=== PATIENT | female | born 1970 | race Caucasian/White ===

== ENCOUNTER 2019-03-26 11:15 | Outpatient (REF) | payer MEDICAID, SELFPAY ==
[2019-03-26 22:51] LABS: Calculated LDL 97 mg/dL; Cholesterol 206 mg/dL (50-200); HDL Cholesterol 47 mg/dL (40-60); Triglyceride 312 mg/dL (30-150)
== END 2019-03-26 11:35 ==
LOC: NCHCN 11:15
PROVIDERS: Visit Provider Registered Nurse
DX: E78.5 Hyperlipidemia, unspecified (principal)
CPT/HCPCS: 80061; 83721

== ENCOUNTER 2020-01-03 13:09 | Outpatient (REF) | payer MEDICAID, SELFPAY ==
[2020-01-03 20:52] LABS: Anion Gap 7.4 mmol/L (3-11); BUN 23 mg/dL (7-18); CO2 29.6 mmol/L (21.0-32.0); CREATININE 1.04 mg/dL (0.55-1.02); Chloride 101 mmol/L (98-107); Estimated GFR 55.87 (mL/min/1.73m2); Glucose 90 mg/dL (74-106); Potassium 3.6 mmol/L (3.5-5.1); Sodium 138 mmol/L (136-145)
== END 2020-01-03 13:29 ==
LOC: NCHCN 13:09
PROVIDERS: Visit Provider Registered Nurse
DX: I10 Essential (primary) hypertension (principal)
CPT/HCPCS: 80048

== ENCOUNTER 2020-01-13 12:58 | Outpatient (REF) | payer MEDICAID, SELFPAY ==
[2020-01-13 21:29] LABS: BUN 12 mg/dL (7-18); CREATININE 1.01 mg/dL (0.55-1.02); Estimated GFR 57.79 (mL/min/1.73m2)
== END 2020-01-13 13:18 ==
LOC: NCHCN 12:58
PROVIDERS: Visit Provider Registered Nurse
DX: R79.89 Other specified abnormal findings of blood chemistry (principal)
CPT/HCPCS: 84520; 82565

== ENCOUNTER 2020-10-01 16:10 | Outpatient (REF) | payer MEDICAID, SELFPAY ==
[2020-10-01 14:24] LABS: Abs Immature Grans 0.06 10^3/uL (0.0-0.06); Absolute Eosinophil Count 0.25 10^3/uL (0.0-0.7); Absolute Lymphocyte Count 1.99 10^3/uL (1.2-3.4); Absolute Monocyte Count 1.17 10^3/uL (0.1-0.8); Absolute Neutrophil Count 8.56 10^3/uL (1.2-6.7); Basophils % 0.2; Eosinophils % 2.1; HCT 50.8 % (36.0-46.0); HGB 16.8 g/dL (11.2-15.7); Immature Grans % 0.5; Lymphocytes % 16.5; MCH 32.1 pg (27.0-33.0); MCHC 33.1 % (32.0-36.0); MCV 96.9 fL (80-95); MPV 9.9 fL (8.0-11.0); Monocytes % 9.7; Nucleated RBC 0 %; Platelet Count 319 10^3/uL (130-400); RBC 5.24 10^6/uL (3.93-5.22); RDW 12.6 % (11.7-14.6); RDW-SD 45.6 fL; WBC 12.06 10^3/uL (4.4-10.8)
[2020-10-01 14:25] LABS: Absolute Basophil Count 0.02 10^3/uL (0.0-0.2)
== END 2020-10-01 16:11 | disposition home or self-care (01) ==
LOC: NCHCN 16:10
PROVIDERS: PCP Registered Nurse; Visit Provider Registered Nurse
DX: R10.9 Unspecified abdominal pain (principal)
CPT/HCPCS: 85025; 87086

== ENCOUNTER 2021-04-23 10:09 | Outpatient (REF) | payer MEDICAID, SELFPAY ==
[2021-04-23 18:47] LABS: Anion Gap 11.8 mmol/L (3-11); BUN 15 mg/dL (7-18); CO2 26.2 mmol/L (21.0-32.0); CREATININE 0.9 mg/dL (0.55-1.02); Calculated LDL 96 mg/dL (<100); Chloride 103 mmol/L (98-107); Cholesterol 191 mg/dL (<200); Glucose 97 mg/dL (74-106); HDL Cholesterol 52 mg/dL (40-60); Potassium 3.9 mmol/L (3.5-5.1); Sodium 141 mmol/L (136-145); Triglyceride 215 mg/dL (<150)
[2021-04-23 18:51] LABS: Hemoglobin A1C 5.7 % (<5.7)
== END 2021-04-23 10:10 | disposition home or self-care (01) ==
LOC: NCHCN 10:09
PROVIDERS: PCP Registered Nurse; Visit Provider Registered Nurse
DX: I10 Essential (primary) hypertension (principal); E78.5 Hyperlipidemia, unspecified
CPT/HCPCS: 80048; 80061; 83036

== ENCOUNTER 2021-06-03 12:32 | Outpatient (REF) | payer MEDICAID, SELFPAY ==
[2021-06-03 14:23] LABS: Anion Gap 7.2 mmol/L (3-11); BUN 16 mg/dL (7-18); CO2 26.8 mmol/L (21.0-32.0); Calcium 8.8 mg/dL (8.5-10.1); Chloride 107 mmol/L (98-107); Glucose 145 mg/dL (74-106); Magnesium 1.9 mg/dL (1.8-2.4); Potassium 3.4 mmol/L (3.5-5.1); Sodium 141 mmol/L (136-145)
== END 2021-06-03 12:33 | disposition home or self-care (01) ==
LOC: NCHCN 12:32
PROVIDERS: PCP Registered Nurse; Visit Provider Registered Nurse
DX: Z79.899 Other long term (current) drug therapy (principal)
CPT/HCPCS: 80048; 83735

== ENCOUNTER 2021-07-08 08:56 | Outpatient (REF) | payer MEDICAID, SELFPAY ==
[2021-07-09 02:00] LABS: Potassium 4.2 mmol/L (3.5-5.1)
== END 2021-07-08 08:57 | disposition home or self-care (01) ==
LOC: NCHCN 08:56
PROVIDERS: PCP Registered Nurse; Visit Provider Registered Nurse
DX: E87.6 Hypokalemia (principal)
CPT/HCPCS: 84132

== ENCOUNTER 2022-06-02 21:20 | Outpatient (REF) | payer MEDICAID, SELFPAY ==
[2022-06-02 15:51] LABS: Hemoglobin A1C 6.1 % (<5.7)
[2022-06-02 16:18] LABS: ALT 36 U/L (14-59); AST 28 U/L (15-37); Alkaline Phosphatase 90 U/L (46-116); Anion Gap 9.3 mmol/L (3-11); BUN 23 mg/dL (7-18); Bilirubin, Total 0.5 mg/dL (0.2-1.0); CO2 28.7 mmol/L (21.0-32.0); Calcium 9.5 mg/dL (8.5-10.1); Calculated LDL 115 mg/dL (<100); Chloride 104 mmol/L (98-107); Cholesterol 243 mg/dL (<200); Estimated GFR 66.95 (mL/min/1.73m2); Glucose 99 mg/dL (74-106); HDL Cholesterol 57 mg/dL (40-60); Sodium 142 mmol/L (136-145); Total Protein 7.4 g/dL (6.4-8.2); Triglyceride 355 mg/dL (<150)
== END 2022-06-02 21:21 | disposition home or self-care (01) ==
LOC: NCHCN 21:20
PROVIDERS: PCP Registered Nurse; Visit Provider Registered Nurse
DX: I10 Essential (primary) hypertension (principal); E78.5 Hyperlipidemia, unspecified; R73.03 Prediabetes; N95.1 Menopausal and female climacteric states
CPT/HCPCS: 80053; 80061; 83036; 84443

== ENCOUNTER 2023-09-22 18:16 | Outpatient (REF) | payer MEDICAID, SELFPAY ==
[2023-09-22 21:10] LABS: HCT 48.2 % (36.0-46.0); HGB 16.4 g/dL (11.2-15.7); MCH 31.6 pg (27.0-33.0); MCV 93 fL (80-95); MPV 10.2 fL (8.0-11.0); Platelet Count 308 10^3/uL (130-400); RBC 5.19 10^6/uL (3.93-5.22); RDW 13.1 % (11.7-14.6); RDW-SD 44.5 fL; WBC 9.43 10^3/uL (4.4-10.8)
[2023-09-22 21:26] LABS: ALT 40 U/L (14-59); AST 18 U/L (15-37); Albumin 3.9 g/dL (3.4-5.0); Alkaline Phosphatase 98 U/L (46-116); Anion Gap 8.7 mmol/L (3-11); BUN 19 mg/dL (7-18); Bilirubin, Total 0.4 mg/dL (0.2-1.0); CO2 26.3 mmol/L (21.0-32.0); Calcium 9.2 mg/dL (8.5-10.1); Chloride 105 mmol/L (98-107); Estimated GFR 66.53 (mL/min/1.73m2); Glucose 122 mg/dL (74-106); Potassium 3.4 mmol/L (3.5-5.1); Sodium 140 mmol/L (136-145); Total Protein 7.2 g/dL (6.4-8.2)
== END 2023-09-22 18:17 | disposition home or self-care (01) ==
LOC: NCHCN 18:16
PROVIDERS: PCP Registered Nurse; Visit Provider Internal Medicine
DX: I10 Essential (primary) hypertension (principal); R73.03 Prediabetes
CPT/HCPCS: 80053; 85027; 83036

== ENCOUNTER 2023-09-27 15:42 | Outpatient (REF) | payer MEDICAID, SELFPAY ==
[2023-09-29 13:20] LABS: Helicobacter pylori Ag, Feces Negative (Negative)
== END 2023-09-27 15:43 | disposition home or self-care (01) ==
LOC: NCHCN 15:42
PROVIDERS: PCP Registered Nurse; Visit Provider Internal Medicine
DX: R10.13 Epigastric pain (principal)
CPT/HCPCS: 87338

== ENCOUNTER 2024-02-07 15:04 | Outpatient (REF) | payer MEDICAID, SELFPAY ==
[2024-02-07 21:59] LABS: Hemoglobin A1C 5.8 % (<5.7)
[2024-02-07 22:25] LABS: TSH 1.44 uIU/Ml (0.36-3.74); Vitamin B12 436 pg/mL (193-986)
== END 2024-02-07 15:05 | disposition home or self-care (01) ==
LOC: NCHCN 15:04
PROVIDERS: PCP Registered Nurse; Visit Provider Internal Medicine
DX: G60.9 Hereditary and idiopathic neuropathy, unspecified (principal); I10 Essential (primary) hypertension; R73.03 Prediabetes; E78.5 Hyperlipidemia, unspecified
CPT/HCPCS: 82607; 83036; 84443

== ENCOUNTER 2024-11-27 15:57 | Outpatient (REF) | payer MEDICAID, SELFPAY ==
[2024-11-27 16:00] LABS: HCT 45.1 % (36.0-46.0); HGB 14.9 g/dL (11.2-15.7); MCH 32.7 pg (27.0-33.0); MCV 99 fL (80-95); MPV 10.1 fL (8.0-11.0); Platelet Count 280 10^3/uL (130-400); RBC 4.56 10^6/uL (3.93-5.22); RDW 12.5 % (11.7-14.6); RDW-SD 45.7 fL; WBC 12.23 10^3/uL (4.4-10.8)
[2024-11-27 16:18] LABS: ALT 30 U/L (14-59); AST 16 U/L (15-37); Albumin 3.6 g/dL (3.4-5.0); Alkaline Phosphatase 88 U/L (46-116); BUN 28 mg/dL (7-18); Bilirubin, Total 0.3 mg/dL (0.2-1.0); CREATININE 1.7 mg/dL (0.55-1.02); Calcium 9.7 mg/dL (8.5-10.1); Chloride 104 mmol/L (98-107); Estimated GFR 34.98 (mL/min/1.73m2); Glucose 114 mg/dL (74-106); Potassium 3.8 mmol/L (3.5-5.1); Sodium 143 mmol/L (136-145); Total Protein 7.3 g/dL (6.4-8.2)
[2024-11-27 17:04] LABS: Hemoglobin A1C 5.9 % (<5.7)
== END 2024-11-27 15:58 | disposition home or self-care (01) ==
LOC: NCHCN 15:57
PROVIDERS: PCP Registered Nurse; Visit Provider Internal Medicine
DX: I10 Essential (primary) hypertension (principal); R73.03 Prediabetes; D75.1 Secondary polycythemia
CPT/HCPCS: 80053; 85027; 83036

== ENCOUNTER 2024-12-26 17:37 | Outpatient (REF) | payer MEDICAID, SELFPAY ==
[2024-12-26 21:33] LABS: Abs Immature Grans 0.03 10^3/uL (0.0-0.06); Absolute Basophil Count 0.04 10^3/uL (0.0-0.2); Absolute Eosinophil Count 0.19 10^3/uL (0.0-0.7); Absolute Lymphocyte Count 2.17 10^3/uL (1.2-3.4); Absolute Monocyte Count 0.65 10^3/uL (0.1-0.8); Absolute Neutrophil Count 4.54 10^3/uL (1.2-6.7); Basophils % 0.5 %; Eosinophils % 2.5 %; HCT 46.4 % (36.0-46.0); HGB 15.3 g/dL (11.2-15.7); Immature Grans % 0.4 %; Lymphocytes % 28.5 %; MCH 32.1 pg (27.0-33.0); MCV 97 fL (80-95); Monocytes % 8.5 %; Neutrophils % 59.6 %; Platelet Count 268 10^3/uL (130-400); RBC 4.77 10^6/uL (3.93-5.22); RDW 12.8 % (11.7-14.6); RDW-SD 45.8 fL; WBC 7.62 10^3/uL (4.4-10.8)
[2024-12-26 21:55] LABS: Anion Gap 8.6 mmol/L (3-11); BUN 17 mg/dL (7-18); CO2 29.4 mmol/L (21.0-32.0); Calcium 9.3 mg/dL (8.5-10.1); Chloride 105 mmol/L (98-107); Estimated GFR 66.12 (mL/min/1.73m2); Glucose 123 mg/dL (74-106); Potassium 3.3 mmol/L (3.5-5.1); Sodium 143 mmol/L (136-145)
== END 2024-12-26 17:38 | disposition home or self-care (01) ==
LOC: NCHCN 17:37
PROVIDERS: PCP Registered Nurse; Visit Provider Internal Medicine
DX: N17.9 Acute kidney failure, unspecified (principal); D72.829 Elevated white blood cell count, unspecified
CPT/HCPCS: 80048; 85025

== ENCOUNTER 2024-12-31 12:55 | Outpatient (REF) | payer MEDICAID, SELFPAY | END 2024-12-31 12:56 | disposition home or self-care (01) | LOC: NCHCN 12:55 | PROVIDERS: PCP Registered Nurse; Visit Provider Internal Medicine | DX: D35.02 Benign neoplasm of left adrenal gland (principal) | CPT/HCPCS: 82533; 82626 ==

== ENCOUNTER 2025-01-06 13:52 | Outpatient (REF) | payer MEDICAID, SELFPAY ==
[2025-01-06 16:05] LABS: Anion Gap 10.6 mmol/L (3-11); BUN 23 mg/dL (7-18); CO2 24.4 mmol/L (21.0-32.0); CREATININE 1.2 mg/dL (0.55-1.02); Calcium 9.7 mg/dL (8.5-10.1); Chloride 108 mmol/L (98-107); Estimated GFR 53.13 (mL/min/1.73m2); Glucose 106 mg/dL (74-106); Potassium 3.5 mmol/L (3.5-5.1); Sodium 143 mmol/L (136-145)
== END 2025-01-06 13:53 | disposition home or self-care (01) ==
LOC: NCHCN 13:52
PROVIDERS: PCP Registered Nurse; Visit Provider Internal Medicine
DX: E87.6 Hypokalemia (principal)
CPT/HCPCS: 80048